=== PATIENT | female | born 1965 | race Caucasian/White ===

== ENCOUNTER 2017-07-24 07:19 | Emergency (ER) | payer OTHER ==
[~2017-07-24] VITALS: Wt 70.0 kg
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
[2017-07-24] MEDS ORDERED: ACETAMINOPHEN 325 MG TAB ONE (07:44)
[2017-07-24] MEDS ORDERED: ACETAMINOPHEN 325 MG TAB PO ONE (08:00)
[2017-07-24] MEDS ORDERED: IBUPROFEN 600 MG TAB PO ONE (08:00)
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
--- NOTE | 2017-07-24 09:07 | RADRPT ---
PROCEDURE: Right ankle series. CLINICAL INDICATION: Right ankle pain TECHNIQUE: Three views of the right ankle are available for review COMPARISON: None available FINDINGS: There is normal mineralization and alignment of the bones of the right ankle. There is a subtle cor tical step-off in the base of the fifth metatarsal seen only on a single view which is likely artifa ctual in nature. There is no definitive evidence of acute fracture or dislocation. Joint spaces are well maintained. No osteophytes or erosions are identified. No joint effusion is identified. The s oft tissues are within normal limits. IMPRESSION: 1. Subtle cortical step-off in the base of the fifth metatarsal seen only on the oblique view, like ly artifactual in nature. If there is high clinical concern for fifth proximal metatarsal fracture, CT should be considered. 2. No definitive evidence of fracture or dislocation. RPTAT: KK .Hunter Josue MD, MD Date Time Electronically viewed and signed by .Hunter Josue MD, MD on 07/24/2017 09:06 .B/
== END 2017-07-24 09:42 | disposition home or self-care (01) ==
LOC: FTE 07:19
DX: S93.401A Sprain of unspecified ligament of right ankle, initial encounter (principal); S20.219A Contusion of unspecified front wall of thorax, initial encounter; V43.52XA Car driver injured in collision with other type car in traffic accident, initial encounter
CPT/HCPCS: 71010; 73610; Z7502; Z7610